=== PATIENT | female | born 1960 | race Caucasian/White ===

== ENCOUNTER 2022-03-15 14:50 | Emergency (ER) | payer OTHER ==
[2022-03-15] MEDS ORDERED: ONDANSETRON 4 MG/2 ML VIAL IVPUSH ONE (15:07)
[2022-03-15] MEDS ORDERED: ACETAMINOPHEN 1000 MG/100 ML BAG IVPB ONE (15:07)
[2022-03-15] MEDS ORDERED: SODIUM CHLORIDE 0.9% 1000 ML INFUS.BAG IV ONE (15:07)
[2022-03-15] MEDS ORDERED: ONDANSETRON 4 MG/2 ML VIAL ONE (15:12)
[2022-03-15 15:14] VITALS: BMI 27.4
[2022-03-15] MEDS ORDERED: ACETAMINOPHEN INJECTION 100 ML IVPB ONE (15:15)
[2022-03-15 15:44] LABS: HEMATOCRIT 42.6 % (32.4-45.2); HEMOGLOBIN 14.5 G/dL (10.7-15.3); MCH 31.3 pg (25.7-33.7); PLATELET COUNT 227.4 10^3/uL (134-434); RBC 4.63 10^6/uL (3.60-5.2); RDW 14.4 % (11.6-15.6); WHITE BLOOD COUNT 6.4 10^3/uL (4.0-10.8)
[2022-03-15 16:29] LABS: ALBUMIN 4.4 g/dl (3.4-5.0); BILIRUBIN,TOTAL 0.6 mg/dl (0.2-1); CALCIUM 10.2 mg/dl (8.5-10); CREATININE 0.6 mg/dl (0.55-1.3); TOT PROT 8.2 g/dl (6.4-8.2)
[2022-03-15 17:00] LABS: EPITHELIAL CELLS FEW /hpf
[2022-03-15 17:20] VITALS: BP 150/89; PULSE 82; TEMP 98.2
== END 2022-03-15 17:20 | disposition home or self-care (01) ==
LOC: FER 14:50
PROC: 3E0333Z Introduction of Anti-inflammatory into Peripheral Vein, Percutaneous Approach (ICD-10-PCS; principal; 2022-03-15)
PROC: 3E033GC Introduction of Other Therapeutic Substance into Peripheral Vein, Percutaneous Approach (ICD-10-PCS; 2022-03-15)
DX: R11.10 Vomiting, unspecified (principal); R10.9 Unspecified abdominal pain
CPT/HCPCS: 36415; 76705-TC; 80053; 81003; 81015; 83690; 85027; 87086; 99284-25